=== PATIENT | male | born 1950 | race Caucasian/White ===

== ENCOUNTER 2024-08-03 08:42 | Inpatient (IN) | payer MEDICARE ==
[~2024-08-03] VITALS: Ht 175.3 cm; Wt 79.4 kg
[2024-08-03] MEDS ORDERED: LIDOCAINE 2% JEL UROJET 10 ML MM ONE (08:52)
[2024-08-03] MEDS ORDERED: ROCURONIUM BROMIDE 50 MG/5 ML ONE (08:53)
[2024-08-03] MEDS ORDERED: FAMOTIDINE/PF INJ 20 MG/2 ML VIAL IV ONE (08:53)
[2024-08-03] MEDS ORDERED: MIDAZOLAM HCL 2 MG/2ML VIAL ONE (08:53)
[2024-08-03] MEDS ORDERED: FENTANYL PF 100MCG/2ML AMPUL ONE (08:53)
[2024-08-03] MEDS ORDERED: OXYMETAZOLINE HCL NASAL SPRAY 30 ML BOTTLE NS ONE ×2 (08:54→08:57)
[2024-08-03] MEDS ORDERED: LIDOCAINE 2%-EPI 1:100,000 30 ML VIAL ONE (08:57)
[2024-08-03] MEDS ORDERED: VANCOMYCIN 1 GM VIAL ONE (08:57)
[2024-08-03] MEDS ORDERED: dexaMETHasone SOD PHOSPHATE 2 ML ONE (08:57)
[2024-08-03] MEDS ORDERED: LABETALOL HCL IV 100MG VIAL ONE (09:17)
[2024-08-03] MEDS ORDERED: CELLULOSE,OXIDIZED 1 EA PACK MC ONE (09:49)
[2024-08-03] MEDS ORDERED: HYDROMORPHONE 1 MG/1 ML DISP.SYRIN IV PRN (11:00)
[2024-08-03] MEDS ORDERED: LABETALOL HCL IV 100MG VIAL IV PRN (11:00)
[2024-08-03] MEDS ORDERED: ONDANSETRON HCL/PF 4 MG/2 ML VIAL IVP PRN (12:30)
[2024-08-03] MEDS: HYDROMORPHONE 1 MG/1 ML DISP.SYRIN IV PRN (13:05)
[2024-08-03 14:00] VITALS: BP 145/78; TEMP 98.2; O2SAT 97
[2024-08-03] MEDS ORDERED: LISI20TA30 PO (15:19)
[2024-08-03] MEDS ORDERED: ATOR20TA PO (15:19)
[2024-08-03] MEDS ORDERED: ASPI-1420 PO (15:19)
[2024-08-03] MEDS ORDERED: TAMS-12 PO (15:19)
[2024-08-03] MEDS: IV NS 0.9% 1,000 ML IV PRN (19:46)
[2024-08-03 20:00] VITALS: BP 141/73; TEMP 98.1; O2SAT 99
[2024-08-03] MEDS: ACETAMINOPHEN 325 MG TABLET PO PRN (20:05)
[2024-08-03] MEDS: VANCOMYCIN 1 GM in IV D5W 250ml IV SCH (20:15)
[2024-08-04 07:00] VITALS: BP 130/70; TEMP 97.9; O2SAT 98
== END 2024-08-04 10:20 | disposition home or self-care (01) | DRG 908 ==
LOC: DS 08:42 → MED 12:15
PROVIDERS: ADMIT Nurse Practitioner Acute Care; ATTEND Nurse Practitioner Acute Care
PROC: 0NSR04Z Reposition Maxilla with Internal Fixation Device, Open Approach (ICD-10-PCS; principal; 2024-08-03)
PROC: 0N5R0ZZ Destruction of Maxilla, Open Approach (ICD-10-PCS; 2024-08-03)
PROC: 0NPW0JZ Removal of Synthetic Substitute from Facial Bone, Open Approach (ICD-10-PCS; 2024-08-03)
PROC: 0NUR07Z Supplement Maxilla with Autologous Tissue Substitute, Open Approach (ICD-10-PCS; 2024-08-03)
PROC: 0NUR0JZ Supplement Maxilla with Synthetic Substitute, Open Approach (ICD-10-PCS; 2024-08-03)
DX: T85.79XA Infection and inflammatory reaction due to other internal prosthetic devices, implants and grafts, initial encounter (principal); S02.40CA Maxillary fracture, right side, initial encounter for closed fracture; Y83.8 Other surgical procedures as the cause of abnormal reaction of the patient, or of later complication, without mention of misadventure at the time of the procedure; M27.2 Inflammatory conditions of jaws; E78.5 Hyperlipidemia, unspecified; I10 Essential (primary) hypertension; N40.0 Benign prostatic hyperplasia without lower urinary tract symptoms; D16.4 Benign neoplasm of bones of skull and face; X58.XXXA Exposure to other specified factors, initial encounter; Y93.9 Activity, unspecified; Y92.009 Unspecified place in unspecified non-institutional (private) residence as the place of occurrence of the external cause
CPT/HCPCS: 87102-TC; 88300-TC; 88305-TC; 88311-TC; A4223; C1713; G0378; J1100; J1171; J2250; J2405; J2704; J3010; J3370; J3490; J7030; J7060